=== PATIENT | male | born 1940 | race Caucasian/White ===

== ENCOUNTER 2017-08-13 10:13 | Outpatient (CLI) | payer OTHER | END 2017-08-13 10:23 | disposition home or self-care (01) | LOC: LAB 10:13 | DX: K40.90 Unilateral inguinal hernia, without obstruction or gangrene, not specified as recurrent (principal); I10 Essential (primary) hypertension; Z01.812 Encounter for preprocedural laboratory examination; Z01.811 Encounter for preprocedural respiratory examination ==

== ENCOUNTER 2017-08-21 05:00 | Day surgery (SDC) | payer OTHER ==
[~2017-08-21 05:00] MED LIST: ASA81 MG PO; AVAPRO150 MG PO; CRESTOR5 MG PO; TOPROL XL50 M1 PO
== END 2017-08-21 13:10 | disposition home or self-care (01) ==
LOC: CIR.AMB 05:00
DX: K40.90 Unilateral inguinal hernia, without obstruction or gangrene, not specified as recurrent (principal)